=== PATIENT | male | born 1945 ===

== ENCOUNTER 2021-03-02 20:36 | Emergency (ER) | payer MEDICARE ==
[2021-03-03 16:57] LABS: SARS-CoV-2 PCR by NAA DETECTED (NotDetected)
== END 2021-03-02 21:10 | disposition home or self-care (01) ==
LOC: BURERS 20:36
DX: U07.1 COVID-19 (principal); I10 Essential (primary) hypertension; E78.5 Hyperlipidemia, unspecified; Z79.899 Other long term (current) drug therapy
CPT/HCPCS: 87804 ×2; U0003; U0005; 99284